=== PATIENT | female | born 2000 | race African-American/Black ===

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

== ENCOUNTER 2019-06-13 10:28 | Emergency (ER) | payer MEDICAID ==
[~2019-06-13] VITALS: Ht 165.1 cm; Wt 48.5 kg
[2019-06-13 11:00] VITALS: BP 110/75
[2019-06-13 11:04] LABS: Urine Bacteria FEW /hpf (None Seen); Urine Blood Negative /uL (Negative); Urine Mucus FEW (None Seen); Urine Specific Gravity 1.023 (1.001-1.035); Urine WBC 4 /hpf (0 - 5)
[2019-06-13 11:06] LABS: Basophils # (auto) 0.1 uL; Eosinophils # (auto) 0.1 uL; Eosinophils % (auto) 1.1 % (0.0-7.0); Hematocrit 39.6 % (36.0-46.0); Hemoglobin 13.3 g/dL (12.2-16.2); Lymphocytes # (auto) 1.9 uL; Mean Corpuscular Hgb Conc. 33.6 g/dL (32.0-36.0); Mean Corpuscular Volume 86.4 fL (80.0-100.0); Monocytes # (auto) 0.5 uL; Monocytes % (auto) 8.9 % (0.0-12.0); Neutrophils # (auto) 2.8 uL; Nucleated Red Blood Cells % 0.1 %; Platelet Count (auto) 245 10^3/uL (140-450); Red Blood Cells 4.58 10^6/uL (4.0-5.20); Red Cell Distribution Width 14.9 % (11.8-14.3); White Blood Cell 5.3 10^3/uL (4.4-10.8)
[2019-06-13 11:20] LABS: Albumin 4.4 g/dL (3.4-5.0); Calcium 9.3 mg/dL (8.5-10.1); Potassium 3.7 mmol/L (3.5-5.1)
[2019-06-13 11:23] LABS: BUN/Creatinine Ratio 19.7; Bilirubin, Total 0.6 mg/dL (0.2-1.0); Total Protein 8.1 g/dL (6.4-8.2)
== END 2019-06-13 12:21 | disposition home or self-care (01) ==
LOC: ER 10:30
DX: N39.0 Urinary tract infection, site not specified (principal)
CPT/HCPCS: 36415; 80053; 81001; 81025; 85025

== ENCOUNTER 2019-12-02 09:56 | Emergency (ER) | payer MEDICAID ==
[~2019-12-02] VITALS: Ht 167.6 cm; Wt 49.9 kg
[2019-12-02 10:05] VITALS: BP 107/74
== END 2019-12-02 12:05 | disposition home or self-care (01) ==
LOC: ER 09:56
DX: S16.1XXA Strain of muscle, fascia and tendon at neck level, initial encounter (principal); M25.512 Pain in left shoulder; X58.XXXA Exposure to other specified factors, initial encounter; Y93.89 Activity, other specified; Y92.89 Other specified places as the place of occurrence of the external cause; Y99.8 Other external cause status